=== PATIENT | female | born 1950 | race Caucasian/White ===

== ENCOUNTER → 2016-08-28 | Outpatient (CLI) | payer MEDICARE, BC ==
--- NOTE | 2016-08-28 14:15 | MM ---
Reason for exam: history of breast cancer, mastectomy. Last mammogram was performed 1 year ago. History: Patient is postmenopausal, has history of other cancer at age 53, and has history of breast cancer at age 46. Family history of breast cancer in maternal aunt at age 70, breast cancer in maternal cousin at age 46, and breast cancer in maternal cousin at age 35. Mastectomy of the left breast, January 1999. Radiation therapy, 1998. Took tamoxifen for 5 years. Took antineoplastic beginning at age 47. Physical Findings: Nurse did not find any significant physical abnormalities on exam. MG 3D Diag Mammo W/Cad RT CC and MLO view(s) were taken of the right breast. Prior study comparison: August 28, 2015, right breast MG diagnostic mammo RT w CAD. August 26, 2014, right breast MG diagnostic mammo RT w CAD. August 25, 2013, right breast MG diagnostic mammo RT w CAD. The breast tissue is heterogeneously dense. This may lower the sensitivity of mammography. There is chronic nodularity in the right breast. There is no dominant lesion. These results were verbally communicated with the patient and result sheet given to the patient on 08/28/16. ASSESSMENT: Benign, BI-RAD 2 RECOMMENDATION: Follow-up diagnostic mammogram of the right breast in 1 year.
== END ==
LOC: RADMAMWWP 13:23
PROVIDERS: ATTEND Internal Medicine Geriatric Medicine
DX: D49.3 Neoplasm of unspecified behavior of breast (principal)
CPT/HCPCS: G0206; G0279

== ENCOUNTER → 2016-09-12 | Outpatient (CLI) | payer MEDICARE, BC ==
--- NOTE | 2016-09-13 15:57 | BD ---
EXAMINATION TYPE: MG DEXA axial skeleton. DATE OF EXAM: 09/12/2016 COMPARISON: 08/16/2008. CLINICAL HISTORY: Height: 4 FT 11 IN Weight: 126 FRAX RISK QUESTIONS: Alcohol (3 or more units per day): NO Family History (Parent hip fracture): NO Glucocorticoids (More than 3mos): NO (Ex: prednisone, prednisolone, methylprednisolone, dexamethasone, and hydrocortisone). History of Fracture in Adulthood: NO Secondary Osteoporosis: 1. Type 1 Diabetes: NO 2. Hyperthyroidism: NO 3. Menopause before 45: NO 4. Malnutrition: NO 5. Chronic liver disease: NO Rheumatoid Arthritis: NO Current Tobacco Use: NO RISK FACTORS HISTORY OF: Active: YES Postmenopausal woman: AGE 50 Lost more than 2 inches in height since high school: YES MEDICATIONS: Additional Medications: LIPITOR, Additional History: BREAST CA AGE 48 RADIATION AND TAMOXIFEN EXAM MEASUREMENTS: Bone mineral densitometry was performed using the [employer] System. Bone mineral density as measured about the Lumbar spine is: ----- L1-L4(G/cm2): 1.395 T Score Values are as follows: ----- L2: 1.9 ----- L3: 1.9 ----- L4: 2.1 ----- L1-L4: 1.8 Bone mineral density has: Decreased -3.4% since study of: 2008 Bone mineral density about the R hip (g/cm2): 0.943 Bone mineral density about the L hip (g/cm2): 0.887 T Score values are as follows: -----R Neck: -0.7 -----L Neck: -1.1 -----R Total: -0.5 -----L Total: -0.8 Bone mineral density has: Decreased -0.4% since study of: 2008 IMPRESSION: Normal (Values between +1 and -1 indicate normal bone mass). Consider repeating this study in 5 year s or sooner if there is some new clinical indication. Bone density has diminished 0.4% within the bilateral hips compared to 08/16/2008. Bone density within the lumbar spine is diminished 3.4% from 2008. NOTE: T-SCORE=SD OF THE YOUNG ADULT MEAN.
== END | disposition home or self-care (01) ==
LOC: RADBDWWP 15:35
PROVIDERS: ATTEND Internal Medicine Geriatric Medicine
DX: M81.0 Age-related osteoporosis without current pathological fracture (principal)
CPT/HCPCS: 77080

== ENCOUNTER → 2017-08-29 | Outpatient (CLI) | payer MEDICARE, BC ==
--- NOTE | 2017-08-29 11:31 | MM ---
Reason for exam: additional evaluation requested from prior study. Last mammogram was performed 1 year ago. History: Patient is postmenopausal, has history of other cancer at age 53, and has history of breast cancer at age 46. Family history of breast cancer in maternal aunt at age 70, breast cancer in maternal cousin at age 46, and breast cancer in maternal cousin at age 35. Mastectomy of the left breast, January 1999. Radiation therapy, 1998. Took tamoxifen for 5 years. Took antineoplastic beginning at age 47. Physical Findings: Nurse did not find any significant physical abnormalities on exam. MG 3D Diag Mammo W/Cad RT CC and MLO view(s) were taken of the right breast. Prior study comparison: August 28, 2016, right breast MG 3d diag mammo w/cad RT. August 28, 2015, right breast MG diagnostic mammo RT w CAD. The breast tissue is heterogeneously dense. This may lower the sensitivity of mammography. There is no discrete abnormality. These results were verbally communicated with the patient and result sheet given to the patient on 08/29/17. ASSESSMENT: Benign, BI-RAD 2 RECOMMENDATION: Follow-up diagnostic mammogram of the right breast in 1 year.
== END | disposition home or self-care (01) ==
LOC: RADMAMWWP 08:46
PROVIDERS: ATTEND Internal Medicine Geriatric Medicine
DX: D49.3 Neoplasm of unspecified behavior of breast (principal)
CPT/HCPCS: 77065; G0279; 77061

== ENCOUNTER → 2018-09-14 | Outpatient (CLI) | payer MEDICARE, BC ==
--- NOTE | 2018-09-15 08:09 | MM ---
Reason for exam: additional evaluation requested from prior study. Last mammogram was performed 1 year and 1 month ago. History: Patient is postmenopausal, has history of other cancer at age 53, and has history of breast cancer at age 46. Family history of breast cancer in maternal aunt at age 70, breast cancer in maternal cousin at age 46, and breast cancer in maternal cousin at age 35. Mastectomy of the left breast, January 1999. Radiation therapy, 1998. Took tamoxifen for 5 years. Took antineoplastic beginning at age 47. Physical Findings: Nurse did not find any significant physical abnormalities on exam. MG 3D Diag Mammo W/Cad RT CC and MLO view(s) were taken of the right breast. Prior study comparison: August 29, 2017, right breast MG 3d diag mammo w/cad RT. August 28, 2016, right breast MG 3d diag mammo w/cad RT. The breast tissue is heterogeneously dense. This may lower the sensitivity of mammography. No suspicious abnormality. No significant new findings when compared with previous films. These results were verbally communicated with the patient and result sheet given to the patient on 09/14/18. ASSESSMENT: Negative, BI-RAD 1 RECOMMENDATION: Follow-up diagnostic mammogram of the right breast in 1 year.
== END | disposition home or self-care (01) ==
LOC: RADMAMWWP 12:48
PROVIDERS: ATTEND Internal Medicine Geriatric Medicine
DX: D49.3 Neoplasm of unspecified behavior of breast (principal)
CPT/HCPCS: 77065; G0279; 77061

== ENCOUNTER → 2019-11-02 | Outpatient (CLI) | payer MEDICARE, BC ==
--- NOTE | 2019-11-02 15:06 | MM ---
Reason for exam: additional evaluation requested from prior study. Last mammogram was performed 1 year and 2 months ago. History: Patient is postmenopausal, has history of other cancer at age 53, and has history of breast cancer at age 46. Family history of breast cancer in maternal aunt at age 70, breast cancer in maternal cousin at age 46, and breast cancer in maternal cousin at age 35. Mastectomy of the left breast, January 1999. Radiation therapy, 1998. Took tamoxifen for 5 years. Took antineoplastic beginning at age 47. Physical Findings: Nurse did not find any significant physical abnormalities on exam. MG 3D Diag Mammo W/Cad RT CC and MLO view(s) were taken of the right breast. Prior study comparison: September 14, 2018, right breast MG 3d diag mammo w/cad RT. August 29, 2017, right breast MG 3d diag mammo w/cad RT. The breast tissue is heterogeneously dense. This may lower the sensitivity of mammography. There is chronic nodularity in the right breast. No significant new findings when compared with previous films. These results were verbally communicated with the patient and result sheet given to the patient on 11/02/19. ASSESSMENT: Benign, BI-RAD 2 RECOMMENDATION: Routine screening mammogram of both breasts in 1 year.
== END | disposition home or self-care (01) ==
LOC: RADMAMWWP 14:11
PROVIDERS: ATTEND Obstetrics & Gynecology
DX: Z08 Encounter for follow-up examination after completed treatment for malignant neoplasm (principal); Z85.3 Personal history of malignant neoplasm of breast
CPT/HCPCS: 77065; G0279; 77061

== ENCOUNTER → 2020-11-24 | Outpatient (CLI) | payer MEDICARE, BC ==
--- NOTE | 2020-11-27 09:36 | MM ---
Reason for exam: screening (asymptomatic). Last mammogram was performed 1 year and 1 month ago. History: Patient is postmenopausal, has history of other cancer at age 53, and has history of breast cancer at age 46. Family history of breast cancer in maternal aunt at age 70, breast cancer in maternal cousin at age 46, and breast cancer in maternal cousin at age 35. Mastectomy of the left breast, January 1999. Radiation therapy, 1998. Took tamoxifen for 5 years. Took antineoplastic beginning at age 47. Physical Findings: A clinical breast exam by your physician is recommended on an annual basis and results should be correlated with mammographic findings. MG 3D Scr [place] Unilateral W/Cad CC and MLO view(s) were taken of the right breast. Prior study comparison: November 02, 2019, right breast MG 3d diag mammo w/cad RT. September 14, 2018, right breast MG 3d diag mammo w/cad RT. The breast tissue is heterogeneously dense. This may lower the sensitivity of mammography. Stable post left mastectomy. ASSESSMENT: Negative, BI-RAD 1 RECOMMENDATION: Routine screening mammogram of the right breast in 1 year.
== END | disposition home or self-care (01) ==
LOC: RADMAMWWP 13:31
PROVIDERS: ATTEND Obstetrics & Gynecology
DX: Z12.31 Encounter for screening mammogram for malignant neoplasm of breast (principal); Z85.3 Personal history of malignant neoplasm of breast; Z80.3 Family history of malignant neoplasm of breast; Z78.0 Asymptomatic menopausal state; Z90.12 Acquired absence of left breast and nipple
CPT/HCPCS: 77067

== ENCOUNTER → 2021-11-26 | Outpatient (CLI) | payer MEDICARE, BC ==
--- NOTE | 2021-11-26 15:10 | BD ---
EXAMINATION TYPE: Axial Bone Density DATE OF EXAM: 11/26/2021 COMPARISON: 09-12-16 CLINICAL HISTORY: 71 years year old Female. ICD-10 CODE: N95.1 postmenopausal symptoms Height: 59IN Weight: 116 FRAX RISK QUESTIONS: Secondary Osteoporosis: RISK FACTORS HISTORY OF: Active: YES Postmenopausal woman: YES EARLY 50'S Take estrogen and/or progesterone medications: TAMOXIFEN, NONE CURRENT How lon YEARS Lost more than 2 inches in height since high school: YES MEDICATIONS: Additional Medications: CHOLESTEROL MED, CALCIUM Additional History: BREAST CANCER AT AGE 47 WITH RADIATION EXAM MEASUREMENTS: Bone mineral densitometry was performed using the [employer] System. Bone mineral density as measured about the Lumbar spine is: ----- L1-L4(G/cm2): 1.326 T Score Values are as follows: ----- L1: 1.1 ----- L2: 0.8 ----- L3: 1.2 ----- L4: 1.5 ----- L1-L4: 1.2 Bone mineral density has: Decreased -6.4% since study of: 09-12-16 Bone mineral density about the R hip (g/cm2): 0.851 Bone mineral density about the L hip (g/cm2): 0.852 T Score values are as follows: -----R Neck: -0.9 -----L Neck: -1.4 -----R Total: -1.2 -----L Total: -1.2 Bone mineral density has: Decreased -8.2% since study of: 09-12-16 FRAX%s: The graph provided illustrates a 9.6% chance for a major osteoporotic fx and a 1.4% chance fo r the hips probability for fx in 10 years time. IMPRESSION: Osteopenia (T Score between -2.5 and -1). There is slightly increased risk of fracture and the patient may be considered for treatment. Re-Screen 2-5 years. NOTE: T-SCORE=SD OF THE YOUNG ADULT MEAN.
--- NOTE | 2021-11-27 18:32 | MM ---
Reason for Exam: Screening (asymptomatic). Last screening mammogram was performed 12 month(s) ago. Patient History: Menarche at age 13. First Full-Term at age 25. Postmenopausal. Breast cancer, left, age 46. Patient used Tamoxifen for 5 years. 01/1999, Mastectomy on the Left side. 1998, Radiation Therapy. Maternal cousin had breast cancer, age 46. Maternal cousin had breast cancer, age 35. Maternal aunt had breast cancer, age 70. Prior Study Comparison: 09/14/2018 Right Diagnostic Mammogram, [facility]. 11/02/2019 Right Diagnostic Mammogram, [facility]. 11/24/2020 Bilateral Screening Mammogram, [facility]. Tissue Density: Right: The breast tissue is heterogeneously dense. This may lower the sensitivity of mammography. Findings: Analyzed By CAD. Chronic nodularity posterior upper-outer quadrant right breast. There is no suspicious group of microcalcifications or new suspicious mass in either breast. Overall Assessment: Benign, BI-RAD 2 Management: Screening Mammogram of the right breast in 1 year. 1. Patient should continue monthly self breast exams. 2. A clinical breast exam by your physician is recommended on an annual basis. 3. This exam should not preclude additional follow-up of suspicious palpable abnormalities. Electronically signed and approved by: Ye Moss M.D. Radiologist
== END | disposition home or self-care (01) ==
LOC: RADBDWWP 13:16
PROVIDERS: ATTEND Obstetrics & Gynecology
DX: Z12.31 Encounter for screening mammogram for malignant neoplasm of breast (principal); M85.89 Other specified disorders of bone density and structure, multiple sites; N95.1 Menopausal and female climacteric states; Z85.3 Personal history of malignant neoplasm of breast
CPT/HCPCS: 77067; 77080

== ENCOUNTER 2021-11-28 11:18 | Day surgery (SDC) | payer MEDICARE, BC ==
[~2021-11-28 11:18] MED LIST: LACTATED RINGERS 1,000 ML IV SCH
[2021-11-28 11:40] VITALS: TEMP 97.8
[2021-11-28] MEDS ORDERED: LACTATED RINGERS 1,000 ML IV ONE (11:40)
[2021-11-28] MEDS ORDERED: PROPOFOL 10 MG/ML 20 ML VIAL IV ONE (12:39)
--- NOTE | 2021-11-28 12:55 | P.PCN ---
Date of Procedure: 11/28/21 Procedure(s) Performed: BRIEF HISTORY: Patient is a 71-year-old pleasant female scheduled for an elective colonoscopy as a part of screening for colorectal neoplasia. Last colonoscopy was 10 years ago. PROCEDURE PERFORMED: Colonoscopy. PREOPERATIVE DIAGNOSIS: Screening for colon cancer. IV sedation per Anesthesia. PROCEDURE: After informed consent was obtained, the patient, was brought into the endoscopy unit. IV sedation was administered by Anesthesia under continuous monitoring. Digital rectal examination was normal. Initially the Olympus CF-160 flexible video colonoscope was then inserted in the rectum, gradually advanced into the cecum without any difficulty. Careful examination was performed as the scope was gradually being withdrawn. Ileocecal valve and the appendiceal orifice were visualized and appeared normal. Prep was excellent. Mucosa of the cecum, ascending colon, transverse colon, descending colon, sigmoid colon, and rectum appeared normal. Scattered sigmoid diverticulosis. Retroflexion was performed in the rectum and no lesions were seen. The patient tolerated the procedure well. IMPRESSION: Normal-appearing colon from rectum to cecum with no evidence of colorectal neoplasia. Scattered sigmoid diverticulosis. RECOMMENDATIONS: Findings of this examination were discussed with the patient as well as a family. She was advised to have a repeat screening colonoscopy in 10 years...
[2021-11-28 13:18] VITALS: RESP 16
[2021-11-28 13:30] VITALS: BP 138/67; PULSE 64
== END 2021-11-28 13:58 | disposition home or self-care (01) ==
LOC: ORWHC2ENDO 11:18
PROVIDERS: ATTEND Internal Medicine Gastroenterology
DX: Z12.11 Encounter for screening for malignant neoplasm of colon (principal); K57.30 Diverticulosis of large intestine without perforation or abscess without bleeding; E78.5 Hyperlipidemia, unspecified; Z79.899 Other long term (current) drug therapy; Z79.82 Long term (current) use of aspirin; Z88.7 Allergy status to serum and vaccine
CPT/HCPCS: J2704; G0121

== ENCOUNTER → 2022-11-27 | Outpatient (CLI) | payer MEDICARE, BC ==
--- NOTE | 2022-11-28 12:34 | MM ---
Reason for Exam: Screening (asymptomatic). Last screening mammogram was performed 12 month(s) ago. Patient History: Menarche at age 13. First Full-Term at age 25. Postmenopausal. Breast cancer, left, age 46. Patient used Tamoxifen for 5 years. 01/1999, Mastectomy on the Left side. 1998, Radiation Therapy. Maternal cousin had breast cancer, age 46. Maternal cousin had breast cancer, age 35. Maternal aunt had breast cancer, age 70. Prior Study Comparison: 11/02/2019 Right Diagnostic Mammogram, [facility]. 11/24/2020 Bilateral Screening Mammogram, [facility]. 11/26/2021 Right MG 3D scr stacy unilateral w/cad., [facility]. Tissue Density: Right: The breast tissue is heterogeneously dense. This may lower the sensitivity of mammography. Findings: There is no suspicious group of microcalcifications or new suspicious mass within the right breast. Chronic nodularity redemonstrated. Overall Assessment: Benign, BI-RAD 2 Management: Screening Mammogram of the right breast in 1 year. . Patient should continue monthly self-breast exams. A clinical breast exam by your physician is recommended on an annual basis. This exam should not preclude additional follow-up of suspicious palpable abnormalities. Note on Karlee scores and lifetime risk: 1. A Karlee score greater than 3% is considered moderate risk. If this is the case, consider specialist referral to assess eligibility for a risk reducing agent. 2. If overall lifetime risk for the development of breast cancer is 20% or higher, the patient may qualify for future screening with alternating mammogram and breast MRI. Electronically signed and approved by: Oleksandr Hernandez M.D. Radiologis
== END | disposition home or self-care (01) ==
LOC: RADMAMWWP 13:25
PROVIDERS: ATTEND Obstetrics & Gynecology
DX: Z12.31 Encounter for screening mammogram for malignant neoplasm of breast (principal); Z85.3 Personal history of malignant neoplasm of breast; Z80.3 Family history of malignant neoplasm of breast
CPT/HCPCS: 77067

== ENCOUNTER → 2023-12-02 | Outpatient (CLI) | payer MEDICARE, BC ==
--- NOTE | 2023-12-03 19:07 | MM ---
Reason for Exam: Screening (asymptomatic). Last screening mammogram was performed 12 month(s) ago. Patient History: Menarche at age 13. First Full-Term at age 25. Postmenopausal. Breast cancer, left, age 46. Patient used Tamoxifen for 5 years. 01/1999, Mastectomy on the Left side. 1998, Radiation Therapy. Maternal cousin had breast cancer, age 46. Maternal cousin had breast cancer, age 35. Maternal aunt had breast cancer, age 70. Prior Study Comparison: 11/24/2020 Bilateral Screening Mammogram, [facility]. 11/26/2021 Right MG 3D scr stacy unilateral w/cad., [facility]. 11/27/2022 Right MG 3D scr stacy unilateral w/cad., [facility]. Tissue Density: Right: The breasts are heterogeneously dense, which may obscure small masses. Findings: Chronic nodularity remains. There is no suspicious group of microcalcifications or new suspicious mass in either breast. Overall Assessment: Benign, BI-RAD 2 Management: Screening Mammogram of the right breast in 1 year. . Patient should continue monthly self-breast exams. A clinical breast exam by your physician is recommended on an annual basis. This exam should not preclude additional follow-up of suspicious palpable abnormalities. [facility], , 12/03/2023 7:04 PM. Electronically signed and approved by: Ye Moss M.D. Radiologist
== END | disposition home or self-care (01) ==
LOC: RADMAMWWP 15:49
PROVIDERS: ATTEND Internal Medicine Geriatric Medicine
CPT/HCPCS: 77067

== ENCOUNTER → 2024-06-28 | Outpatient (CLI) | payer MEDICARE, BC ==
[2024-06-28 16:38] LABS: Basophils # (A) 0.03 X 10*3/uL (0.00-0.10); Basophils % (A) 0.4 %; Eosinophils # (A) 0.08 X 10*3/uL (0.04-0.35); Eosinophils % (A) 1.1 %; HCT 43.4 % (37.2-46.3); HGB 13.9 g/dL (12.0-15.0); Immature Grans, Automated 0 %; Lymphocytes # (A) 1.36 X 10*3/uL (0.90-5.00); Lymphocytes % (A) 19.5 %; MCH 30.7 pg (27.0-32.0); MCV 95.8 FL (80.0-97.0); Mean Platelet Volume 11.8 FL (9.5-12.2); Monocytes # (A) 0.42 X 10*3/uL (0.20-1.00); NRBC Per 100 WBC 0 X 10*3/uL (0.00-0.01); Neutrophils # (A) 5.09 X 10*3/uL (1.80-7.70); Platelet Count 190 X 10*3/uL (140-440); RBC 4.53 X 10*6/uL (4.10-5.20); RDW 13.4 % (11.5-14.5); WBC 6.98 X 10*3/uL (4.50-10.00)
[2024-06-28 17:23] LABS: ALT 17 U/L (8-44); AST 20 U/L (13-35); Albumin 4.3 g/dL (3.8-4.9); Albumin/Globulin Ratio 1.65 Ratio (1.60-3.17); Alkaline Phosphatase 99 U/L (41-126); BUN/Creat Ratio 13.71 Ratio (12.00-20.00); Blood Urea Nitrogen 9.6 mg/dL (9.0-27.0); Calcium 9.3 mg/dL (8.7-10.3); Carbon Dioxide 26.4 mmol/L (21.6-31.8); Chloride 102 mmol/L (96-109); Chol/HDL Ratio 2.39 Ratio; Globulin 2.6 g/dL (1.6-3.3); Glucose 112 mg/dL (70-110); Potassium 3.9 mmol/L (3.5-5.5); Sodium 141 mmol/L (135-145); Total Bilirubin 0.7 mg/dL (0.3-1.2); Total Protein 6.9 g/dL (6.2-8.2); VLDL Calculation 15.52 mg/dL (5.00-40.00)
[2024-06-28 17:24] LABS: T4, Free (Free Thyroxine) 1.31 ng/dL (0.80-1.80)
== END | disposition home or self-care (01) ==
LOC: LABWHC1 09:51
PROVIDERS: ATTEND Internal Medicine Geriatric Medicine
DX: K21.9 Gastro-esophageal reflux disease without esophagitis (principal); E78.2 Mixed hyperlipidemia; E03.9 Hypothyroidism, unspecified; E55.9 Vitamin D deficiency, unspecified
CPT/HCPCS: 36415; 80053; 80061; 82306; 84439; 84443; 85025